=== PATIENT | female | born 1960 | race Caucasian/White ===

== ENCOUNTER → 2020-05-18 | Outpatient (CLI) | payer OTHER ==
[~2020-05-18] MED LIST: CETI10TA18 PO; COLC0.6C3 PO; LEVO500T8 PO; LEVO50TA5 PO; NAPR-856 PO
== END | disposition home or self-care (01) ==
LOC: CVU 07:42
PROVIDERS: ATTEND Physician Assistant Medical
DX: I36.1 Nonrheumatic tricuspid (valve) insufficiency (principal); I31.3 Pericardial effusion (noninflammatory); J90 Pleural effusion, not elsewhere classified; Z87.891 Personal history of nicotine dependence
CPT/HCPCS: 93308; 93321; 93325